=== PATIENT | male | born 1935 | race Caucasian/White ===

== ENCOUNTER 2017-04-06 22:02 | Emergency (ER) | payer OTHER ==
[~2017-04-06] VITALS: Ht 180.3 cm; Wt 86.0 kg
[2017-04-06 22:55] LABS: BASOPHILS % 0.4 % (0.0-2.0); EOSINOPHILS % 0.8 % (0.0-5.0); HEMATOCRIT. 39.9 % (42.0-52.0); HEMOGLOBIN. 13.7 g/dL (14.0-18.0); LYMPHOCYTES % 47.7 % (20.0-50.0); MEAN CORPUSCULAR HEMOGLOBIN 28.2 pg (28.0-32.0); MEAN CORPUSCULAR VOLUME 82.2 fL (80.0-94.0); MEAN PLATELET VOLUME 8.4 fl (7.4-10.4); MONOCYTES % 10.1 % (2.0-8.0); PLATELET 213 x1000/uL (130-400); RED BLOOD CELL COUNT 4.86 mill/uL (4.7-6.1); RED CELL DISTRIBUTION WIDTH 14.5 % (11.6-14.6)
[2017-04-06 23:02] LABS: CHLORIDE 104 mEq/L (98-107)
[2017-04-06 23:06] LABS: PARTIAL THROMBOPLASTIN TIME 27.7 sec (24.0-34.0); PROTHROMBIN TIME 10.7 sec
[2017-04-06 23:10] LABS: CARBON DIOXIDE 30 mEq/L (21-32)
[2017-04-07 00:05] LABS: CLARITY URINE TURBID (CLEAR); COLOR URINE RED (YELLOW); GLUCOSE URINE NEGATIVE (NEGATIVE); KETONES URINE NEGATIVE (NEGATIVE); LEUKOCYTE ESTERASE URINE 2+ (NEGATIVE); NITRITE URINE POSITIVE (NEGATIVE); OCCULT BLOOD URINE 2+ (NEGATIVE); PROTEIN URINE 2+ (NEGATIVE); SPECIFIC GRAVITY URINE 1.022 (1.005-1.030); UROBILINOGEN URINE 0.2 E.U./dL (0.2-1.0)
[2017-04-07 01:19] VITALS: BP 151/86
== END 2017-04-07 02:30 | disposition home or self-care (01) ==
LOC: ER 23:21
DX: N39.0 Urinary tract infection, site not specified (principal); R31.9 Hematuria, unspecified; I10 Essential (primary) hypertension; Z88.0 Allergy status to penicillin; Z98.890 Other specified postprocedural states
CPT/HCPCS: 36415; 76770; 80053; 81001; 81003; 85025; 85610; 85730; 99285; Z7610

== ENCOUNTER 2018-06-11 11:06 | Inpatient (IN) | payer MEDICARE, OTHER ==
[2018-06-11] VITALS (28 sets, daily range): BP systolic 69–175; BP diastolic 37–109
[~2018-06-11] VITALS: Ht 177.8 cm; Wt 80.0 kg
[2018-06-11 12:41] LABS: BASOPHILS % 0.3 % (0.0-2.0); EOSINOPHILS % 0.1 % (0.0-5.0); HEMATOCRIT. 44.9 % (42.0-52.0); LYMPHOCYTES % 30.7 % (20.0-50.0); MEAN CORPUSCULAR HEMOGLOBIN 26.5 pg (28.0-32.0); MEAN CORPUSCULAR VOLUME 79.4 fL (80.0-94.0); MEAN PLATELET VOLUME 9.2 fl (7.4-10.4); MONOCYTES % 10.5 % (2.0-8.0); NEUTROPHILS % 58.4 % (40.0-76.0); PLATELET 188 x1000/uL (130-400); RED BLOOD CELL COUNT 5.65 mill/uL (4.7-6.1); RED CELL DISTRIBUTION WIDTH 15.3 % (11.6-14.6)
[2018-06-11 12:46] LABS: CHLORIDE 106 mEq/L (98-107)
[2018-06-11 12:47] LABS: INR 1.1; PROTHROMBIN TIME 10.6 sec (9.1-11.1)
[2018-06-11 12:52] LABS: ETHANOL BLOOD < 10 mg/dL
[2018-06-11 14:04] LABS: CLARITY URINE CLOUDY (CLEAR); COLOR URINE YELLOW (YELLOW); KETONES URINE NEGATIVE (NEGATIVE); LEUKOCYTE ESTERASE URINE 3+ (NEGATIVE); NITRITE URINE POSITIVE (NEGATIVE); OCCULT BLOOD URINE 3+ (NEGATIVE); PROTEIN URINE 1+ (NEGATIVE); SPECIFIC GRAVITY URINE 1.018 (1.005-1.030); UROBILINOGEN URINE 0.2 E.U./dL (0.2-1.0)
[2018-06-11 14:22] LABS: *AMPHETAMINES SCREEN URINE NEGATIVE (NEGATIVE); *BARBITURATES SCREEN URINE NEGATIVE (NEGATIVE); *BENZODIAZEPINES SCREEN URINE NEGATIVE (NEGATIVE); *COCAINE SCREEN URINE NEGATIVE (NEGATIVE); METHADONE URINE SCREEN NEGATIVE (NEGATIVE)
[2018-06-11 14:23] LABS: CANNABINOID URINE SCREEN NEGATIVE (NEGATIVE); OPIATES URINE SCREEN NEGATIVE (NEGATIVE); PHENCYCLIDINE URINE SCREEN NEGATIVE (NEGATIVE)
[2018-06-11] MEDS ORDERED: LEVETIRACETAM 500MG PREMIX 100 ML IV ONE (14:30)
[2018-06-11] MEDS ORDERED: HYDRALAZINE 20MG/ML VIAL IV ONE (14:30)
[2018-06-11] MEDS ORDERED: DEXT 5%/LACTATED RINGERS 1,000 ML IV SCH (16:30)
[2018-06-11] MEDS ORDERED: NICARDIPINE 100 MG in SODIUM CHLORIDE 0.9% 60 ML IV PRN (17:30)
[2018-06-11] MEDS ORDERED: LEVETIRACETAM 500 MG in SODIUM CHLORIDE 0.9% 100 ML IV SCH (18:00)
[2018-06-11] MEDS ORDERED: HYDRALAZINE 20MG/ML VIAL IV PRN (18:30)
[2018-06-11] MEDS ORDERED: AMLODIPINE 5MG TABLET PO NR (18:45)
[2018-06-11] MEDS ORDERED: ONDANSETRON HCL 4MG/2ML VIAL IV PRN (18:45)
[2018-06-11] MEDS: LEVOFLOXACIN 500MG PREMIX 100 ML IV SCH (20:06)
[2018-06-11] MEDS ORDERED: AMLODIPINE 5MG TABLET PO SCH (21:00)
[2018-06-11] MEDS: HYDRALAZINE HCL 50MG TABLET PO SCH (21:01)
[2018-06-11] MEDS: AMLODIPINE 5MG TABLET PO SCH (21:02)
[2018-06-11] MEDS ORDERED: HYDRALAZINE HCL 10MG TABLET PO SCH (22:00)
[2018-06-12] VITALS (56 sets, daily range): BP systolic 84–141; BP diastolic 12–90
[2018-06-12 05:07] LABS: BASOPHILS % 0.2 % (0.0-2.0); EOSINOPHILS % 0.2 % (0.0-5.0); HEMATOCRIT. 37.8 % (42.0-52.0); HEMOGLOBIN. 12.7 g/dL (14.0-18.0); MEAN CORPUSCULAR HEMOGLOBIN 26.4 pg (28.0-32.0); MEAN CORPUSCULAR VOLUME 78.8 fL (80.0-94.0); MEAN PLATELET VOLUME 9.2 fl (7.4-10.4); MONOCYTES % 12.1 % (2.0-8.0); NEUTROPHILS % 57.5 % (40.0-76.0); PLATELET 172 x1000/uL (130-400); RED CELL DISTRIBUTION WIDTH 15.7 % (11.6-14.6)
[2018-06-12] MEDS: HYDRALAZINE HCL 50MG TABLET PO SCH ×3 (05:41→21:50)
[2018-06-12] MEDS: LEVETIRACETAM 500 MG in SODIUM CHLORIDE 0.9% 100 ML IV SCH ×2 (06:19→18:08)
[2018-06-12] MEDS: DOCUSATE SODIUM 250MG CAPSULE PO SCH (08:52)
[2018-06-12] MEDS: FAMOTIDINE 20MG/2ML VIAL IV SCH (08:52)
[2018-06-12] MEDS: AMLODIPINE 5MG TABLET PO SCH ×2 (08:53→20:39)
[2018-06-12] MEDS ORDERED: SODIUM CHL 0.45% + KCL 20MEQ/L 1,000 ML IV SCH (09:00)
[2018-06-12 09:16] LABS: TOTAL IRON BINDING CAPACITY 293 ug/dL (250-450)
[2018-06-12] MEDS: DEXT 5%/0.45% NACL KCL 20MEQ/L 1,000 ML IV SCH (11:43)
[2018-06-12] MEDS: LEVOFLOXACIN 500MG PREMIX 100 ML IV SCH (19:49)
[2018-06-13] VITALS (22 sets, daily range): BP systolic 103–153; BP diastolic 44–109
[2018-06-13] MEDS: DEXT 5%/0.45% NACL KCL 20MEQ/L 1,000 ML IV SCH (02:46)
[2018-06-13] MEDS: HYDRALAZINE HCL 50MG TABLET PO SCH (06:31)
[2018-06-13] MEDS: LEVETIRACETAM 500 MG in SODIUM CHLORIDE 0.9% 100 ML IV SCH (06:31)
[2018-06-13] MEDS: AMLODIPINE 5MG TABLET PO SCH (08:35)
[2018-06-13] MEDS: FAMOTIDINE 20MG/2ML VIAL IV SCH (08:35)
[2018-06-13] MEDS: DOCUSATE SODIUM 250MG CAPSULE PO SCH (08:35)
== END 2018-06-13 10:45 | disposition home health service (06) | DRG 82 ==
LOC: ER 11:06 → MICUSO 14:25 → EDBEDREQ 14:28 → EDBEDREQTM 14:28 → EDBEDREQSVC 14:31 → ENRESERV 15:02
PROVIDERS: ADMIT Internal Medicine Geriatric Medicine; ATTEND Internal Medicine Geriatric Medicine
DX: S06.329A Contusion and laceration of left cerebrum with loss of consciousness of unspecified duration, initial encounter (principal); N17.0 Acute kidney failure with tubular necrosis; N39.0 Urinary tract infection, site not specified; R71.0 Precipitous drop in hematocrit; B96.89 Other specified bacterial agents as the cause of diseases classified elsewhere; I10 Essential (primary) hypertension; I44.0 Atrioventricular block, first degree; N40.1 Benign prostatic hyperplasia with lower urinary tract symptoms; R04.0 Epistaxis; R31.29 Other microscopic hematuria; W06.XXXA Fall from bed, initial encounter; N13.9 Obstructive and reflux uropathy, unspecified; R33.9 Retention of urine, unspecified; Y93.89 Activity, other specified; Y99.8 Other external cause status; Y92.092 Bedroom in other non-institutional residence as the place of occurrence of the external cause; Z87.19 Personal history of other diseases of the digestive system; Z88.0 Allergy status to penicillin; Y92.003 Bedroom of unspecified non-institutional (private) residence as the place of occurrence of the external cause; Z87.828 Personal history of other (healed) physical injury and trauma; Z91.19 Patient's noncompliance with other medical treatment and regimen
CPT/HCPCS: 36415; 70450; 71045; 80048; 80053; 80305; 81003; 82270; 83540; 83550; 84484; 85025; 85610; 87077; 87086; 87186; 93005; 96365; 96375; 97162; 99291; G0482; J0360; J1953; J1956; J3480; J3490; J7050

== ENCOUNTER 2019-10-11 04:19 | Emergency (ER) | payer MEDICARE, OTHER ==
[~2019-10-11] VITALS: Ht 180.3 cm; Wt 79.0 kg
[2019-10-11 06:40] LABS: CLARITY URINE TURBID (CLEAR); COLOR URINE BLOODY (YELLOW); KETONES URINE NEGATIVE (NEGATIVE); LEUKOCYTE ESTERASE URINE 2+ (NEGATIVE); NITRITE URINE POSITIVE (NEGATIVE); PH URINE 6.5 (4.5-8.0); PROTEIN URINE 4+ (NEGATIVE); UROBILINOGEN URINE 0.2 E.U./dL (0.2-1.0)
[2019-10-11] MEDS ORDERED: OXYCODONE HCL/ACETAMINOPHEN 5/325MG TABLET PO ONE (06:45)
[2019-10-11 07:11] LABS: OCCULT BLOOD URINE 4+ (NEGATIVE)
[2019-10-11] MEDS ORDERED: LEVOFLOXACIN 750MG PREMIX 150 ML IV ONE (07:30)
[2019-10-11 10:36] VITALS: BP 127/82
== END 2019-10-11 10:41 | disposition home or self-care (01) ==
LOC: ER 04:19
DX: N39.0 Urinary tract infection, site not specified (principal); R31.9 Hematuria, unspecified; R33.9 Retention of urine, unspecified; F41.9 Anxiety disorder, unspecified; I10 Essential (primary) hypertension; Z88.0 Allergy status to penicillin; Z87.430 Personal history of prostatic dysplasia; Z98.890 Other specified postprocedural states
CPT/HCPCS: 51702; 81003; 87086; 96365; 99284; J1956; 99283; A4315

== ENCOUNTER 2019-10-12 06:49 | Emergency (ER) | payer MEDICARE, OTHER ==
[~2019-10-12] VITALS: Ht 177.8 cm; Wt 86.0 kg
[2019-10-12 08:37] VITALS: BP 121/68
== END 2019-10-12 08:38 | disposition home or self-care (01) ==
LOC: ER 06:49
DX: N39.0 Urinary tract infection, site not specified (principal); R31.9 Hematuria, unspecified; I10 Essential (primary) hypertension; Z88.0 Allergy status to penicillin; Z98.890 Other specified postprocedural states
CPT/HCPCS: 99283